=== PATIENT | female | born 1945 | race Caucasian/White ===

== ENCOUNTER 2021-12-25 08:00 | Day surgery (SDC) | payer BC, SELFPAY ==
--- NOTE | 2021-12-25 07:50 | W.ANESPRE ---
General Info Date of Service Date Performed: 12/25/21 Height: 5 ft Weight: 58.967 kg Body Mass Index (BMI): 25.4 Surgical Procedure: Operation Date: 12/25/21 10:40 Proposed Procedure Side Surgeon p Cataract Extraction with IOL Implant Right Ney De Souza MD Meds Allergies and Home Medications Allergies Allergy/AdvReac Type Severity Reaction Status Date / Time niacin Allergy Mild Skin Rash Verified 12/25/21 08:38 Home Medication Medication Instructions Recorded Echinacea purpurea 100 mg capsule 100 mg PO DAILY 12/21/21 aspirin 81 mg tablet,delayed 81 mg PO DAILY 12/21/21 release cholecalciferol (vitamin D3) 50 50 mcg PO DAILY 12/21/21 mcg (2,000 unit) tablet (Vitamin D3) cranberry fruit 400 mg tablet 400 mg PO DAILY 12/21/21 ginkgo biloba 40 mg tablet 40 mg PO DAILY 12/21/21 guaifenesin 200 mg tablet (Mucus 200 mg PO DAILY 12/21/21 Relief) magnesium gluconate 500 mg tablet 500 mg PO DAILY 12/21/21 multivitamin 1 tab PO DAILY 12/21/21 omega-3 fatty acids-vitamin E 1 cap PO DAILY 12/21/21 1,000 mg capsule vitamin B complex-folic acid 0.4 1 tab PO DAILY 12/21/21 mg tablet (B Complex 1 (with folic acid)) vitamin E 400 unit capsule 400 unit PO DAILY 12/21/21 Current Visit Medications: Current Medications Generic Name Dose Route Start Last Admin Trade Name Freq PRN Reason Stop Dose Admin Acetaminophen 1,000 mg 12/25/21 06:00 Acetaminophen 500 Mg Tab PO 12/25/21 16:00 Q4H PRN PRN Miscellaneous Medication 0 ml 12/25/21 06:00 Prednisolone 1%, Moxifloxacin 0.5%, Nepafenac 0.1% 5ml Btl OD 12/25/21 16:00 DIRECTED [facility] Miscellaneous Medication 0 ml 12/25/21 06:00 Tropicam./Phenyleph. (1/2.5%) 5 Ml Btl OD 12/25/21 16:00 DIRECTED [facility] Tetracaine HCl 0 ml 12/25/21 06:00 Tetracaine 0.5% 4 Ml Btl OD 12/25/21 16:00 DIRECTED [facility] Medical History Medical History (Updated 12/25/21 @ 08:50 by Ney De Souza MD) Arthritis Cataract Surgical History Surgical History History of cholecystectomy History of colonoscopy Tobacco Smoking/Tobacco Use Status: Never Alcohol Alcohol Intake: never Substance Use Substance use: Never Substance use type: does not use Vital Signs and Lab Results Lab Results Blood Type / Crossmatch: No Data to Display Complete Blood Count: No Data to Display Complete Metabolic Panel: No Data to Display Liver Function Panel: No Data to Display Coagulation Panel: No Data to Display Cardiac Panel: No Data to Display Arterial Blood Gas: No Data to Display Venous Blood Gas: No Data to Display Pancreas Panel: No Data to Display Thyroid Panel: No Data to Display Infectious Disease: No Data to Display Blood Cultures: No Data to Display Toxicology Panel: No Data to Display Imaging and Studies Imaging and Studies Study information below may be from another EMR and interpreted by another provider. Please see original notes in EMR for more complete details. Carotid Artery Summary:: IMPRESSION: 1. No evidence of hemodynamically significant internal carotid artery stenosis. 2. Velocity elevations in the right external carotid artery, which may reflect stenosis. Anesthesia Assessment and Plan Anesthesia History Personal History: No History of Anesthesia Complications Family History: No Family History of Anesthesia Complications Exercise Tolerance Exercise Tolerance: Metabolic Equivalents>4 Pertinent Negatives Pertinent Negatives: No Symptoms of GERD, No Major Pulmonary Symptoms or Complaints and No History of CVA/TIA Cardiac & Pulmonary Exam Cardiac Exam: Normal S1/S2 Heart Sounds Pulmonary Exam: Clear Bilateral Breath Sounds Implantable Cardiac Device Does patient have a Pacemaker or an ICD?: No Airway Exam Known Difficult Airway: No Mallampati Class: 2 Mouth Opening: Normal (> 3cm) Thyromental Distance: Greater than 3 cm Neck Range of Motion: Full ROM Neck Circumference: Normal Teeth Condition: Normal Dentition (Some missing, overall good condition) ASA Classification ASA Score: ASA 2 Emergency Case?: No NPO Status NPO Status: NPO Clears >2 hours, Solids >8 hours Anesthesia Plan Resuscitation Status: Full Code Anesthesia Technique: MAC Anesthesia Airway Planned: Natural Airway Monitors Used: Standard Monitors
[2021-12-25 08:29] VITALS: BP 149/86; PULSE 90; RESP 16; TEMP 36.6; O2SAT 99
[2021-12-25] MEDS: Tropicam./Phenyleph. (1/2.5%) 5 ML BTL OD ×3 (08:43→09:04)
[2021-12-25] MEDS: Lidocaine 2% Jelly 6 ML SYR (09:37)
[2021-12-25 09:38] VITALS: BMI 25.4
[2021-12-25] MEDS: Tetracaine 0.5% 4 ML BTL OD (09:38)
[2021-12-25] MEDS: Balanced Salt Soln.-PLUS 500 ML BAG (09:47)
[2021-12-25] MEDS: Duovisc Viscoelastic System EACH 1 EACH (09:50)
[2021-12-25] MEDS: Povidone-Iodine Ophth 30 ML BTL (09:50)
[2021-12-25 10:12] VITALS: BP 138/59; PULSE 87; RESP 16; TEMP 36.7; O2SAT 94
--- NOTE | 2021-12-25 10:13 | W.PM.DSUDISC ---
Discharge Plan Disposition Patient Disposition: HOME Condition: Good Discharge Details Attending Provider: Ney De Souza Primary Care Provider: Camila Fabian Home Meds and New Rx's Prescriptions: No Action multivitamin Tablet 1 tab PO DAILY Echinacea purpurea 100 mg Capsule 100 mg PO DAILY magnesium gluconate 500 mg Tablet 500 mg PO DAILY aspirin [Aspir-81] 81 mg Tablet,Delayed Release (Dr/Ec) 81 mg PO DAILY guaifenesin [Mucus Relief] 200 mg Tablet 200 mg PO DAILY ginkgo biloba [Ginkoba] 40 mg Tablet 40 mg PO DAILY Rx Instructions: give with meal/snack vitamin E 400 unit Capsule 400 unit PO DAILY Fish Oil 1,000 mg Capsule 1 cap PO DAILY vitamin B complex-folic acid [B Complex 1 (with folic acid)] 0.4 mg Tablet 1 tab PO DAILY cholecalciferol (vitamin D3) [Vitamin D3] 50 mcg (2,000 unit) Tablet 50 mcg PO DAILY cranberry fruit 400 mg Tablet 400 mg PO DAILY Rx Instructions: administer with a meal Discharge Instructions Stand Alone Forms: Post-op Topical Cataract, Michelle Hebert ([facility]) Discharge Orders Discharge Orders: Discharge Order (Routine); Ordered 12/25/21 Ordered By: Ney De Souza DS: Diagnosis Discharge Diagnosis (1) Posterior subcapsular age-related cataract, right eye: Status: Resolved (2) Nuclear sclerotic cataract of right eye: Status: Resolved
--- NOTE | 2021-12-25 10:14 | ROE_ITS ---
Date of service: 12/25/21 Time of Service: 09:14 Operative Note Operative Note DATE OF PROCEDURE: 12/25/21 PRE-OP DIAGNOSIS: Nuclear/posterior subcapsular cataract, right eye POST-OP DIAGNOSIS: same Severe zonular laxity, right eye PROCEDURE: Cataract extraction using phacoemulsification with intraocular lens implant, right eye Implantation of capsular tension ring, right eye SURGEON: Ney De Souza ANESTHESIA TYPE: Local By Surgeon and MAC Refer to Anesthesia Record ESTIMATED BLOOD LOSS: 0 PATHOLOGY: none sent COMPLICATIONS: None Patient was transported to: same day Patient's condition: stable Implants: Cla[employer] & Clarence/PATRICIA Tecnis [id number] Morcher Type 15 capsular tension ring Indications: Progressive visual loss due to cataract, right eye Procedure Description: CATARACT SURGERY OPERATIVE REPORT PREOPERATIVE DIAGNOSIS: 1. Nuclear/posterior subcapsular cataract, right eye POSTOPERATIVE DIAGNOSIS: Same OPERATION: 1. Cataract extraction using phacoemulsification with posterior chamber intraocular lens implant, right eye. 2. Implantation of Morcher Type 15 capsular tension ring IOL: IOL Political Research Scientist/Model: Clarence & Clarence / PATRICIA Tecnis [id number] IOL Power: + 20.50 diopters IOL Serial Number: [id number] Optic Diameter: 6.0mm Haptic/Overall Diameter: 13.0mm PHACO INFO: Terry [employer].comurion Vision System with OZil and Active Fluidics Cumulative Dispersed Energy (CDE): 19.68 seconds SURGEON: Ney De Souza MD, CHUCK ANESTHESIA: Monitored Anesthesia Care (MAC), with local sub-tenon's anesthetic infiltration COMPLICATIONS: None SPECIMENS: None INDICATIONS FOR PROCEDURE: The patient is a 76-year-old lady with history of diminished visual acuity in her right eye. She is noted to have a dense nuclear and posterior subcapsular cataract with poor view of the retina, with visual acuity of counting fingers. The option of cataract surgery was offered to the patient and she wished to proceed. She has some macular degeneration as well, which is not well seen, but understands her postoperative visual acuity will be limited by the presence of her pre-existing maculopathy. PROCEDURE: The correct surgical eye was identified and marked as the right eye and the pupil was dilated in the preoperative area using mydriatics and cycloplegics. The dilated pupil size was 7.0 mm. She elected to proceed without oral sedation.. The patient was brought to the operating room where cardiopulmonary monitoring was instituted and surgical time-out was performed, confirming the correct operative eye and IOL power. Topical anesthesia was administered and ophthalmic povidone-iodine 5% was instilled into the conjunctival fornices. Lidocaine gel was applied to the cornea and the pro-ocular area was prepped with Betadine 10% solution and draped in the usual sterile fashion for intraocular surgery, including an aperture drape. A Tegaderm transparent film dressing was cut in half and used to cover the lashes and lid margins. Care was taken to sequester the lashes and lid margins under the Tegaderm dressing. A lid speculum was placed between the lids of the operative eye and the Terry LuxOR Revalia operating microscope was maneuvered into position. Lee scissors were then used to make a conjunctival buttonhole approximately 6mm posterior to the limbus in the inferonasal quadrant. Blunt dissection was carried out to expose bare sclera, and a blunt-tipped sub-tenon?s anesthesia cannula was introduced and passed posteriorly along the globe where non- preserved plain lidocaine was injected into posterior sub-Tenon?s space. A sideport knife was used to make a paracentesis port inferotemporally. Intraocular phenylephrine/lidocaine was injected into the anterior chamber. The anterior chamber was filled with viscoelastic. A 2.4mm keratome knife was used to construct a 2-plane near-clear corneal tunnel extending 2.0mm into clear cornea superiortemporally. A flap was raised on the anterior capsule and capsulorhexis forceps were used to complete a continuous curvilinear capsulorhexis of 5.5 mm. Capsulorhexis was challenging due to constant, wild eye movements. The two way radio technician used 0.12 forceps to fixate the eye through a superior nasal paracentesis. Moderate to severe zonular laxity was noted during creation. Balanced salt solution was then used to perform cortical cleaving hydrodissection and nuclear hydrodelineation until the lens could be freely rotated within the capsular bag. The lens nucleus was then disassembled and removed within the capsular bag and iris plane using phacoemulsification. Residual cortical material was removed using the I/A handpiece. The posterior capsule was carefully polished to remove as much residual lens epithelial cells as safely possible. The capsular bag was then inflated and the anterior chamber deepened with viscoelastic. The sacral incision was enlarged slightly, and a capsular tension ring was inserted into the capsular bag without difficulty. The lens implant described above was inserted into the capsular bag using the PATRICIA [place] Injector. A Kuglen hook was used to dial the IOL into position. Residual viscoelastic was then removed first from posterior to the IOL, then from the anterior chamber using the I/A handpiece. The lens implant was noted to center nicely within the capsular bag. The incisions were stromally hydrated, and the anterior chamber was reformed using BSS. Then 0.5cc of moxifloxacin 1.0mg/ml were injected into the capsular bag and anterior chamber. The incisions were checked with a Weck spear and found to be secure. Several drops of ophthalmic povidone-iodine 5% were then applied to the eye followed by two drops of Imprimis combination prednisolone/moxifloxacin/nepafenac solution. The drapes were removed and a clear plastic protective eye shield was placed over the eye. The patient was then returned to Same Day Surgery in stable condition.
--- NOTE | 2021-12-25 10:34 | W.ANESPOSTOP ---
Postoperative Evaluation Date, Time and Location Date Performed: 12/25/21 Time Performed: 10:20 Patient Location: Day Surgery Unit Vital Signs Most Recent Imported Vital Signs: Most Recent Vital Signs Temp Pulse Resp BP Pulse Ox 36.7 C 87 16 138/59 L 94 12/25/21 10:12 12/25/21 10:12 12/25/21 10:12 12/25/21 10:12 12/25/21 10:12 Pain Score Most Recent Pain Score: Most Recent Pain Score Pain Level 0 12/25/21 10:12 Assessment Mental Status: Awake (Alert & Oriented to Patient Baseline) Airway and Respiratory Function: Patent airway with normal (patient baseline) respiratory exam Cardiovascular Function: Hemodynamically Stable Hydration Status: Adequately Hydrated Nausea & Vomiting: No Nausea or Vomiting Pain: Pt. Denies Any Pain Peripheral Nerve Block: Patient did not receive a nerve block
== END 2021-12-25 10:46 | disposition home or self-care (01) ==
PROVIDERS: PCP Nurse Practitioner Family; Visit Provider Ophthalmology
PROC: (CPT 66984; principal; 2021-12-25 10:30)
DX: H25.041 Posterior subcapsular polar age-related cataract, right eye (principal)
CPT/HCPCS: 66984; V2632

== ENCOUNTER 2022-01-08 08:58 | Day surgery (SDC) | payer BC, SELFPAY ==
--- NOTE | 2022-01-08 06:29 | W.ANESPRE ---
General Info Date of Service Date Performed: 01/08/22 Height: 5 ft Weight: 61 kg Body Mass Index (BMI): 26.2 Surgical Procedure: Operation Date: 01/08/22 11:40 Proposed Procedure Side Surgeon p Cataract Extraction with IOL Implant Left Ney De Souza MD Meds Allergies and Home Medications Allergies Allergy/AdvReac Type Severity Reaction Status Date / Time niacin Allergy Mild Skin Rash Verified 01/08/22 09:21 Home Medication Medication Instructions Recorded Echinacea purpurea 100 mg capsule 100 mg PO DAILY 12/21/21 aspirin 81 mg tablet,delayed 81 mg PO DAILY 12/21/21 release cholecalciferol (vitamin D3) 50 50 mcg PO DAILY 12/21/21 mcg (2,000 unit) tablet (Vitamin D3) cranberry fruit 400 mg tablet 400 mg PO DAILY 12/21/21 ginkgo biloba 40 mg tablet 40 mg PO DAILY 12/21/21 guaifenesin 200 mg tablet (Mucus 200 mg PO DAILY 12/21/21 Relief) magnesium gluconate 500 mg tablet 500 mg PO DAILY 12/21/21 multivitamin 1 tab PO DAILY 12/21/21 omega-3 fatty acids-vitamin E 1 cap PO DAILY 12/21/21 1,000 mg capsule vitamin B complex-folic acid 0.4 1 tab PO DAILY 12/21/21 mg tablet (B Complex 1 (with folic acid)) vitamin E 400 unit capsule 400 unit PO DAILY 12/21/21 Current Visit Medications: Current Medications Generic Name Dose Route Start Last Admin Trade Name Freq PRN Reason Stop Dose Admin Acetaminophen 1,000 mg 01/08/22 06:00 Acetaminophen 500 Mg Tab PO Q4H PRN PRN Miscellaneous Medication 0 ml 01/08/22 06:00 Prednisolone 1%, Moxifloxacin 0.5%, Nepafenac 0.1% 5ml Btl OS DIRECTED [facility] Miscellaneous Medication 0 ml 01/08/22 06:00 Tropicam./Phenyleph. (1/2.5%) 5 Ml Btl OS DIRECTED [facility] Tetracaine HCl 0 ml 01/08/22 06:00 Tetracaine 0.5% 4 Ml Btl OS DIRECTED [facility] PFSH Active Problems Active Problems: Problem Status Onset Code Nuclear sclerotic cataract of right eye H25.11 Posterior subcapsular age-related cataract, right eye H25.041 Medical History Medical History Arthritis Cataract Surgical History Surgical History History of cholecystectomy History of colonoscopy Hx of cataract surgery Tobacco Smoking/Tobacco Use Status: Never Alcohol Alcohol Intake: never Substance Use Substance use: Never Substance use type: does not use Vital Signs and Lab Results Vital Signs Most Recent Vital Signs in EMR: Temp Pulse Resp BP Pulse Ox 36.6 C 89 16 142/78 H 100 01/08/22 09:18 01/08/22 09:18 01/08/22 09:18 01/08/22 09:18 01/08/22 09:18 Lab Results Blood Type / Crossmatch: No Data to Display Complete Blood Count: No Data to Display Complete Metabolic Panel: No Data to Display Liver Function Panel: No Data to Display Coagulation Panel: No Data to Display Cardiac Panel: No Data to Display Arterial Blood Gas: No Data to Display Venous Blood Gas: No Data to Display Pancreas Panel: No Data to Display Thyroid Panel: No Data to Display Infectious Disease: No Data to Display Blood Cultures: No Data to Display Toxicology Panel: No Data to Display Imaging and Studies Imaging and Studies Study information below may be from another EMR and interpreted by another provider. Please see original notes in EMR for more complete details. Carotid Artery Summary:: 04/2014: IMPRESSION: 1. No evidence of hemodynamically significant internal carotid artery stenosis. 2. Velocity elevations in the right external carotid artery, which may reflect stenosis. Anesthesia Assessment and Plan Anesthesia History Personal History: No History of Anesthesia Complications Family History: No Family History of Anesthesia Complications Exercise Tolerance Exercise Tolerance: Metabolic Equivalents>4 Cardiac & Pulmonary Exam Cardiac Exam: Normal S1/S2 Heart Sounds Pulmonary Exam: Clear Bilateral Breath Sounds Implantable Cardiac Device Does patient have a Pacemaker or an ICD?: No Airway Exam Known Difficult Airway: No Mallampati Class: 2 Mouth Opening: Normal (> 3cm) Thyromental Distance: Greater than 3 cm Neck Range of Motion: Full ROM Neck Circumference: Normal Teeth Condition: Normal Dentition (Some missing, overall good condition) ASA Classification ASA Score: ASA 2 Emergency Case?: No NPO Status NPO Status: NPO Clears >2 hours, Solids >8 hours Anesthesia Plan Resuscitation Status: Full Code Anesthesia Technique: MAC Anesthesia Airway Planned: Natural Airway Monitors Used: Standard Monitors Preoperative Comments:: 76 yo female for cataract removal. Sig PMHX: denies major. Previous Cat: no MKO, but may benefit from 1/2 tab. Discussed doing a 1/2 tab, she is not interested.
[2022-01-08 09:18] VITALS: BP 142/78; PULSE 89; RESP 16; TEMP 36.6; O2SAT 100
[2022-01-08] MEDS: Tropicam./Phenyleph. (1/2.5%) 5 ML BTL OS ×3 (09:27→09:37)
[2022-01-08 09:45] VITALS: BMI 26.2
--- NOTE | 2022-01-08 10:31 | W.PM.DSUDISC ---
Discharge Plan Disposition Patient Disposition: HOME Condition: Good Discharge Details Attending Provider: Ney De Souza Primary Care Provider: ALIS CALDERA Home Meds and New Rx's Prescriptions: No Action multivitamin Tablet 1 tab PO DAILY Echinacea purpurea 100 mg Capsule 100 mg PO DAILY magnesium gluconate 500 mg Tablet 500 mg PO DAILY aspirin [Aspir-81] 81 mg Tablet,Delayed Release (Dr/Ec) 81 mg PO DAILY guaifenesin [Mucus Relief] 200 mg Tablet 200 mg PO DAILY ginkgo biloba [Ginkoba] 40 mg Tablet 40 mg PO DAILY Rx Instructions: give with meal/snack vitamin E 400 unit Capsule 400 unit PO DAILY Fish Oil 1,000 mg Capsule 1 cap PO DAILY vitamin B complex-folic acid [B Complex 1 (with folic acid)] 0.4 mg Tablet 1 tab PO DAILY cholecalciferol (vitamin D3) [Vitamin D3] 50 mcg (2,000 unit) Tablet 50 mcg PO DAILY cranberry fruit 400 mg Tablet 400 mg PO DAILY Rx Instructions: administer with a meal Discharge Instructions Stand Alone Forms: Post-op Topical Cataract, Michelle Hebert ([facility]) Discharge Orders Discharge Orders: Discharge Order (Routine); Ordered 01/08/22 Ordered By: Ney De Souza DS: Diagnosis Discharge Diagnosis (1) Posterior subcapsular age-related cataract of left eye: Status: Resolved (2) Nuclear sclerotic cataract of left eye: Status: Resolved
[2022-01-08] MEDS: Tetracaine 0.5% 4 ML BTL OS (11:08)
[2022-01-08] MEDS: Balanced Salt Soln.-PLUS 500 ML BAG (11:08)
[2022-01-08] MEDS: Duovisc Viscoelastic System EACH 1 EACH (11:12)
[2022-01-08] MEDS: Lidocaine 2% Jelly 6 ML SYR (11:14)
[2022-01-08] MEDS: Povidone-Iodine Ophth 30 ML BTL (11:16)
[2022-01-08 11:27] VITALS: BP 126/58; PULSE 89; RESP 16; TEMP 37.1; O2SAT 92
--- NOTE | 2022-01-08 11:30 | W.PM.OP ---
Date of service: 01/08/22 Time of Service: 11:30 Operative Note Operative Note DATE OF PROCEDURE: 01/08/22 PRE-OP DIAGNOSIS: Nuclear/posterior subcapsular cataract, left eye POST-OP DIAGNOSIS: same PROCEDURE: Cataract extraction using phacoemulsification with intraocular lens implant, left eye SURGEON: Ney De Souza ANESTHESIA TYPE: Local By Surgeon and MAC Refer to Anesthesia Record PATHOLOGY: none sent COMPLICATIONS: None Patient was transported to: same day Patient's condition: stable Implants: Cla[employer] / [employer] Tecnis [id number] Indications: Progressive decreased vision due to cataract, left eye Procedure Description: CATARACT SURGERY OPERATIVE REPORT PREOPERATIVE DIAGNOSIS: 1. Nuclear/posterior subcapsular cataract, left eye POSTOPERATIVE DIAGNOSIS: Same OPERATION: 1. Cataract extraction using phacoemulsification with posterior chamber intraocular lens implant, left eye. IOL: IOL Oil Laboratory Analyst/Model: Clarence [employer] Clarence / PATRICIA Tecnis [id number] IOL Power: + 22.5 diopters IOL Serial Number: [id number] Optic Diameter: 6.0 mm Haptic/Overall Diameter: 13.0 mm PHACO INFO: Terry C$ c[employer]urion Vision System with OZil and Active Fluidics Cumulative Dispersed Energy (CDE): 7.64 seconds SURGEON: Ney De Souza MD, CHUCK ANESTHESIA: Monitored A [facility] (MAC), with local sub-tenon's anesthetic infiltration COMPLICATIONS: None SPECIMENS: None INDICATIONS FOR PROCEDURE: Patient is a 76-year-old lady with history of dense bilateral nuclear and posterior subcapsular cataract, right eye greater than left who developed significant decrease in visual acuity secondary to that. She has already undergone cataract surgery in her right eye. Postoperatively, she had significant corneal edema of unexplained etiology, although she had a very dense cataract with high CDE. Her corneal edema has shown significant improvement over the past week and thus she elected to proceed with cataract surgery in the left eye. PROCEDURE: The correct surgical eye was identified and marked as the left eye and the pupil was dilated in the preoperative area using mydriatics and cycloplegics. The dilated pupil size was 7.0 mm. The patient was brought to the operating room where cardiopulmonary monitoring was instituted and surgical time-out was performed, confirming the correct operative eye and IOL power. Topical anesthesia was administered and ophthalmic povidone-iodine 5% was instilled into the conjunctival fornices. Lidocaine gel was applied to the cornea and the pro-ocular area was prepped with Betadine 10% solution and draped in the usual sterile fashion for intraocular surgery, including an aperture drape. A Tegaderm transparent film dressing was cut in half and used to cover the lashes and lid margins. Care was taken to sequester the lashes and lid margins under the Tegaderm dressing. A lid speculum was placed between the lids of the operative eye and the Terry Lux[employer] Revalia operating microscope was maneuvered into position. Lee scissors were then used to make a conjunctival buttonhole approximately 6mm posterior to the limbus in the inferonasal quadrant. Blunt dissection was carried out to expose bare sclera, and a blunt-tipped sub-tenon?s anesthesia cannula was introduced and passed posteriorly along the globe where non-preserved plain lidocaine was injected into posterior sub-Tenon?s space. A sideport knife was used to make a paracentesis port superiorly/superiortemporally. Intraocular phenylephrine/lidocaine was injected int the anterior chamber.. The anterior chamber was filled with viscoelastic. A 2.4mm keratome knife was used to construct a 2-plane near-clear corneal tunnel extending 2.0mm into clear cornea temporally. A flap was raised on the anterior capsule and capsulorhexis forceps were used to complete a continuous curvilinear capsulorhexis of 5.0 mm. During creation of the capsulorrhexis, some posterior pressure was noted. 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 Viscoelastic was released through the side-port and the iris was repositioned. The remainder of the capsulorrhexis was challenging due to the shallow chamber and constant patient eye movement. Balanced salt solution was then used to perform cortical cleaving hydrodissection and nuclear hydrodelineation until the lens could be freely rotated within the capsular bag. A small amount of additional Viscoat was injected into the anterior chamber to protect the corneal endothelium. The lens nucleus was then disassembled and removed within the capsular bag and iris plane using phacoemulsification. Care was taken to stay far away from the endothelium, given the postop corneal edema in the right eye. Residual cortical material was removed using the 45-degree angled silicone I/A tip with 0.3mm port. The posterior capsule was carefully polished to remove as much residual lens epithelial cells as safely possible. The capsular bag was then inflated and the anterior chamber deepened with viscoelastic. The lens implant described above was inserted into the capsular bag using the PATRICIA Pisek Injector. A Kuglen hook was used to dial the IOL into position. Residual viscoelastic was then removed first from posterior to the IOL, then from the anterior chamber using the I/A handpiece. The lens implant was noted to center nicely within the capsular bag. The incisions were stromally hydrated, and the anterior chamber was reformed using BSS. Miostat was injected into the anterior chamber and the pupil was noted to come down around. This was to alleviate any further iris prolapse. Then 0.5cc of moxifloxacin 1.0mg/ml were injected into the capsular bag and anterior chamber. The incisions were checked with a Weck spear and found to be secure. Several drops of ophthalmic povidone-iodine 5% were then applied to the eye followed by two drops of Imprimis combination prednisolone/moxifloxacin/nepafenac solution. The drapes were removed and a clear plastic protective eye shield was placed over the eye. The patient was then returned to Same Day Surgery in stable condition.
--- NOTE | 2022-01-08 11:46 | W.ANESPOSTOP ---
Postoperative Evaluation Date, Time and Location Date Performed: 01/08/22 Time Performed: 11:40 Patient Location: Day Surgery Unit Vital Signs Most Recent Imported Vital Signs: Most Recent Vital Signs Temp Pulse Resp BP Pulse Ox 37.1 C 89 16 126/58 L 92 01/08/22 11:27 01/08/22 11:27 01/08/22 11:27 01/08/22 11:27 01/08/22 11:27 Pain Score Most Recent Pain Score: Most Recent Pain Score Pain Level 0 01/08/22 09:18 Assessment Mental Status: Awake (Alert & Oriented to Patient Baseline) Airway and Respiratory Function: Patent airway with normal (patient baseline) respiratory exam Cardiovascular Function: Hemodynamically Stable Hydration Status: Adequately Hydrated Nausea & Vomiting: No Nausea or Vomiting Pain: Pt. Denies Any Pain Peripheral Nerve Block: Patient did not receive a nerve block
== END 2022-01-08 11:59 | disposition home or self-care (01) ==
PROVIDERS: PCP Nurse Practitioner Family; Visit Provider Ophthalmology
PROC: (CPT 66984; principal; 2022-01-08 11:30)
DX: H25.042 Posterior subcapsular polar age-related cataract, left eye (principal)
CPT/HCPCS: 66984; V2632

== ENCOUNTER 2022-07-24 11:18 | Outpatient (REF) | payer MEDICARE, SELFPAY ==
[2022-07-24 18:24] LABS: Abs Immature Grans 0.03 10^3/uL (0.0-0.06); Absolute Basophil Count 0.03 10^3/uL (0.0-0.2); Absolute Eosinophil Count 0.05 10^3/uL (0.0-0.7); Absolute Lymphocyte Count 1.75 10^3/uL (1.2-3.4); Absolute Monocyte Count 0.71 10^3/uL (0.1-0.8); Absolute Neutrophil Count 6.93 10^3/uL (1.2-6.7); Basophils % 0.3; Eosinophils % 0.5; HCT 43.4 % (36.0-46.0); HGB 14.3 g/dL (11.2-15.7); Immature Grans % 0.3; Lymphocytes % 18.4; MCH 29.7 pg (27.0-33.0); MCHC 32.9 % (32.0-36.0); MCV 90 fL (80-95); Monocytes % 7.5; RBC 4.81 10^6/uL (3.93-5.22); RDW 12.6 % (11.7-14.6); RDW-SD 41.4 fL
[2022-07-24 19:10] LABS: ALT 37 U/L (14-59); AST 30 U/L (15-37); Albumin 3.7 g/dL (3.4-5.0); Alkaline Phosphatase 117 U/L (46-116); Anion Gap 11.2 mmol/L (3-11); BUN 11 mg/dL (7-18); Bilirubin, Total 0.4 mg/dL (0.2-1.0); CO2 27.8 mmol/L (21.0-32.0); CREATININE 0.9 mg/dL (0.55-1.02); Calculated LDL 114 mg/dL (<100); Chloride 104 mmol/L (98-107); Cholesterol 202 mg/dL (<200); Estimated GFR 66.26 (mL/min/1.73m2); Glucose 107 mg/dL (74-106); HDL Cholesterol 45 mg/dL (40-60); Potassium 4.5 mmol/L (3.5-5.1); Sodium 143 mmol/L (136-145); TSH (W/Ref FT4) 1.76 uIU/mL (0.36-3.74); Total Protein 7.7 g/dL (6.4-8.2); Triglyceride 216 mg/dL (<150); Vitamin B12 1783 pg/mL (193-986)
== END 2022-07-24 11:19 | disposition home or self-care (01) ==
LOC: NCHCN 11:18
PROVIDERS: PCP Nurse Practitioner Family; Visit Provider Nurse Practitioner Family
DX: R53.1 Weakness (principal); R41.3 Other amnesia; R79.89 Other specified abnormal findings of blood chemistry
CPT/HCPCS: 80053; 80061; 82607; 84443; 85025

== ENCOUNTER → 2023-03-07 10:47 | Outpatient (BNVA) | payer MEDICARE, SELFPAY | PROVIDERS: PCP Nurse Practitioner Family; Referring Provider Nurse Practitioner Family; Visit Provider Surgery | DX: K61.1 Rectal abscess (principal) | CPT/HCPCS: 10060; 99215; 99243 ==

== ENCOUNTER 2023-03-07 14:08 | Outpatient (REF) | payer MEDICARE, SELFPAY ==
[2023-03-08 13:44] LABS: HSV 1 DNA Result Negative (Negative); HSV 2 DNA Result Negative (Negative)
== END 2023-03-07 14:09 | disposition home or self-care (01) ==
LOC: LBN 14:08
PROVIDERS: PCP Nurse Practitioner Family; Visit Provider Obstetrics & Gynecology Gynecology
DX: N90.89 Other specified noninflammatory disorders of vulva and perineum (principal); Z11.59 Encounter for screening for other viral diseases
CPT/HCPCS: 87529; 86695; 86696

== ENCOUNTER → 2023-03-14 13:09 | Outpatient (BNVA) | payer MEDICARE, SELFPAY | PROVIDERS: PCP Nurse Practitioner Family; Referring Provider Nurse Practitioner Family; Visit Provider Surgery | DX: K61.1 Rectal abscess (principal) | CPT/HCPCS: 99212 ==

== ENCOUNTER → 2023-05-15 13:15 | Outpatient (BNVA) | payer MEDICARE, SELFPAY | PROVIDERS: PCP Nurse Practitioner Family; Referring Provider Nurse Practitioner Family; Visit Provider Surgery | DX: K61.1 Rectal abscess (principal); L03.314 Cellulitis of groin | CPT/HCPCS: 99213 ==

== ENCOUNTER 2023-05-23 16:04 | Outpatient (REF) | payer MEDICARE, SELFPAY ==
[2023-05-23 15:52] LABS: HCT 43.1 % (36.0-46.0); HGB 14.6 g/dL (11.2-15.7); MCH 30.3 pg (27.0-33.0); MCHC 33.9 % (32.0-36.0); MCV 89 fL (80-95); MPV 10.5 fL (8.0-11.0); Platelet Count 233 10^3/uL (130-400); RBC 4.82 10^6/uL (3.93-5.22); RDW 12.8 % (11.7-14.6); WBC 7.92 10^3/uL (4.4-10.8)
[2023-05-23 16:28] LABS: ALT 32 U/L (14-59); AST 24 U/L (15-37); Albumin 4.2 g/dL (3.4-5.0); Alkaline Phosphatase 90 U/L (46-116); Anion Gap 9.4 mmol/L (3-11); BUN 12 mg/dL (7-18); Bilirubin, Total 0.4 mg/dL (0.2-1.0); CO2 27.6 mmol/L (21.0-32.0); CREATININE 1.1 mg/dL (0.55-1.02); Calcium 10.1 mg/dL (8.5-10.1); Chloride 101 mmol/L (98-107); Estimated GFR 51.75 (mL/min/1.73m2); Glucose 107 mg/dL (74-106); Potassium 4.7 mmol/L (3.5-5.1); Sodium 138 mmol/L (136-145); TSH (W/Ref FT4) 2.46 uIU/mL (0.36-3.74); Total Protein 7.6 g/dL (6.4-8.2); Vitamin B12 1419 pg/mL (193-986)
== END 2023-05-23 16:05 | disposition home or self-care (01) ==
LOC: NCHCN 16:04
PROVIDERS: PCP Nurse Practitioner Family; Visit Provider Nurse Practitioner Family
DX: F41.8 Other specified anxiety disorders (principal); L29.8 Other pruritus; B37.0 Candidal stomatitis
CPT/HCPCS: 80053; 85027; 82607; 84443

== ENCOUNTER → 2023-05-24 08:19 | Outpatient (BNVA) | payer MEDICARE, SELFPAY | PROVIDERS: PCP Nurse Practitioner Family; Referring Provider Nurse Practitioner Family; Visit Provider Surgery | DX: L73.9 Follicular disorder, unspecified (principal) | CPT/HCPCS: 99213 ==

== ENCOUNTER 2024-09-22 07:39 | Outpatient (CLI) | payer MEDICARE, SELFPAY ==
--- NOTE | 2024-09-22 | DI.RAD_ITS ---
Exam(s) XR CHEST 2V PA LATERAL EXAM: XR CHEST 2V PA LATERAL CLINICAL HISTORY: Cough x 2 days, RLL with adventitious lung sounds on exam, R05.9. TECHNIQUE: 2D digital imaging was performed. COMPARISON: No exams were available for comparison FINDINGS: 2 views: Heart size is normal. The mediastinum is not widened. Left lung is clear. There are slightly increased markings in the right lower lobe. No air bronchogr ams. No pleural effusions. No pulmonary edema. No pneumothorax. No fractures. IMPRESSION: Minimally increased markings in the lower right lung field either right lower lobe or right middle lo be. May represent early infiltrate. No pleural effusions. DATA REPOSITORY: RADIATION DOSE DELIVERED:
== END 2024-09-22 07:59 ==
LOC: DI 09-23 07:39
PROVIDERS: PCP Nurse Practitioner Family; Visit Provider Nurse Practitioner Family
DX: R91.8 Other nonspecific abnormal finding of lung field (principal); R05.9 Cough, unspecified
CPT/HCPCS: 71046